=== PATIENT | female | born 1975 | race Caucasian/White ===

== ENCOUNTER 2018-10-08 22:18 | Emergency (ER) | payer OTHER, SELFPAY ==
[2018-10-08] MEDS ORDERED: Dexamethasone 4 mg/ml Vial ONE (22:48)
[2018-10-08] MEDS ORDERED: Ketorolac Tromethamine 30 MG/ML VIAL ONE ×2 (22:48→22:57)
== END 2018-10-08 23:09 | disposition home or self-care (01) ==
LOC: ERS 22:18
DX: J01.90 Acute sinusitis, unspecified (principal); K02.9 Dental caries, unspecified; F17.210 Nicotine dependence, cigarettes, uncomplicated
CPT/HCPCS: 96372; J1100; J1885

== ENCOUNTER 2021-05-07 15:25 | Outpatient (CLI) | payer BC | END 2021-05-07 15:26 | disposition home or self-care (01) | LOC: BICMAMMO 15:25 | PROVIDERS: ATTEND Family Medicine | DX: Z12.31 Encounter for screening mammogram for malignant neoplasm of breast (principal) | CPT/HCPCS: 77063; 77067 ==